=== PATIENT | female | born 1970 | race Caucasian/White ===

== ENCOUNTER 2017-01-04 22:43 | Emergency (ER) | payer SELFPAY ==
[~2017-01-04] VITALS: Ht 167.6 cm; Wt 81.5 kg
[~2017-01-04 22:43] MED LIST: IBUP800T25 PO
[2017-01-04 22:49] VITALS: Ht 167.6 cm; Wt 81.5 kg
[2017-01-05 00:34] LABS: ADD UMIC YES; UR BILIRUBIN (Dip) 2+ (NEGATIVE); UR BLOOD (Dip) 1+ (NEGATIVE); UR CLARITY SLIGHTLY CLOUDY (CLEAR); UR COLOR DK. YELLOW (YELLOW); UR GLUCOSE (Dip) NEGATIVE (NEGATIVE); UR KETONES (Dip) 15 (NEGATIVE); UR LEUKOCYTE ESTERASE (Dip) 1+ (NEGATIVE); UR NITRITE (Dip) NEGATIVE (NEGATIVE); UR TOTAL PROTEIN (Dip) 1+ (NEGATIVE); UR UROBILINOGEN (Dip) 1.0 E.U./dL (0.1-1.0)
[2017-01-05 00:47] LABS: ICTOTEST NEGATIVE (NEGATIVE)
[2017-01-05 00:49] LABS: UR BACTERIA FEW
[2017-01-05 00:50] LABS: UR SQUAMOUS EPITHELIAL CELL MANY
[2017-01-05] MEDS ORDERED: ONDANSETRON 4 MG INJ IV STA (00:51)
[2017-01-05] MEDS ORDERED: morphine 4 MG/ML VIAL IV STA (00:51)
[2017-01-05] MEDS ORDERED: SOD CHLORIDE 0.9% 1,000 ML IV ONE (01:00)
[2017-01-05] MEDS ORDERED: CEPH-443 PO (01:19)
[2017-01-05] MEDS ORDERED: ACET1TAB40 PO (01:19)
[2017-01-05] MEDS ORDERED: CEFTRIAXONE 1 GM/50 ML (PMX) 50 ML IVPB ONE ×2 (01:30)
[2017-01-05] MEDS ORDERED: HYDROCODONE/APAP (5/325) TAB PO ONE (01:30)
[2017-01-05] MEDS ORDERED: LIDOCAINE 1% (MDV) 20 ML INJ IM ONE (01:30)
--- NOTE | 2017-01-05 01:35 | ERD ---
"ER Documentation Chief Complaint Date/Time DATE: 01/05/17 TIME: 01:33 Chief Complaint lower abd pain, painful urination x 2 days HPI 46-year-old female with a history of uterine fibroids comes emergency room with lower abdominal pain and painful urination. Patient states that she has had on and off pelvic pain, she has been seen at [facility] emergency room she states that a CT scan showed multiple fibroids, she has also been told by an outside provider that she likely needs surgery. She also complains of painful urination for the past 2 days includes burning and urgency. She has not had any fevers, chills, vomiting. She denies any heavy vaginal bleeding. She states that she has had intermittent spotting for the last several months. ROS All systems reviewed and are negative except as per history of present illness. Medications Home Meds Active Scripts Acetaminophen with Codeine (Acetaminophen-Cod #3 Tablet) 1 Each Tablet, 1 TAB PO Q6H Y for PAIN, #20 TAB Prov:BRAD MCKEON PA-C 01/05/17 Cephalexin* (Keflex*) 500 Mg Capsule, 500 MG PO TID for 10 Days, CAP Prov:BRAD MCKEON PA-C 01/05/17 Ibuprofen* (Motrin*) 800 Mg Tab, 800 MG PO Q6 Y for PAIN, #14 TAB Prov:VLADEZ HOROWITZ PA-C 11/15/15 Allergies Allergies: Coded Allergies: No Known Drug Allergies (Verified Allergy, Mild, 01/04/17) PMhx/Soc History of Surgery: Yes (TUBAL LIGATION) Anesthesia Reaction: No Hx Neurological Disorder: No Hx Respiratory Disorders: No Hx Cardiac Disorders: Yes (HTN ) Hx Psychiatric Problems: No Hx Miscellaneous Medical Probl: No Hx Alcohol Use: No Hx Substance Use: Yes (MARIJUANA ) Hx Tobacco Use: Yes (2-3CIGS/ DAY ) Smoking Status: Current every day smoker Physical Exam Vitals Vital Signs Date Time Temp Pulse Resp B/P Pulse Ox O2 Delivery O2 Flow Rate FiO2 01/04/17 22:49 98.4 102 20 129/86 100 Physical Exam General: Well-developed, well-nourished. The patient appears in no acute distress. HEENT: Head is normocephalic, atraumatic. No scleral icterus. Neck: Supple. Nontender. Lungs: Clear to auscultation. Normal air movement. Heart: Regular rate and rhythm. S1 and S2 are normal. No murmurs, gallops, or rubs. Abdomen: Soft, suprapubic tenderness nondistended. Bowel sounds are normoactive. Extremities: No clubbing or cyanosis. Normal pulses. Moving extremities x 4. No weakness. Neurologic: Alert and oriented 3. No focal deficits. Skin: Normal turgor. No rash or lesions. Results 24 hrs Laboratory Tests Test 01/05/17 00:10 Urine Color DK. YELLOW Urine Clarity SLIGHTLY CLOUDY Urine pH 5.0 Urine Specific [place] >=1.030 Urine Ketones 15 Urine Nitrite NEGATIVE Urine Bilirubin 2+ Urine Ictotest NEGATIVE Urine Urobilinogen 1.0 E.U./dL Urine Leukocyte Esterase 1+ Urine Microscopic RBC 2-5/HPF Urine Microscopic WBC >200/HPF Urine Squamous Epithelial Cells MANY Urine Calcium Oxalate Crystals FEW Urine Bacteria FEW Urine Hemoglobin 1+ Urine Glucose NEGATIVE% Urine Total Protein 1+ Current Medications Medications (Trade) Dose Ordered Sig/Dawson Route PRN Reason Start Time Stop Time Status Last Admin Dose Admin Sodium Chloride (NS) 1,000 ml @ 1,000 mls/hr Q1H ONCE IV 01/05/17 01:00 01/05/17 01:18 DC Morphine Sulfate (morphine) 4 mg ONCE STAT IV 01/05/17 00:51 01/05/17 01:18 DC Ondansetron HCl 4 mg 4 mg ONCE STAT IV 01/05/17 00:51 01/05/17 01:18 DC Ceftriaxone Sodium 50 ml @ 100 mls/hr ONCE ONCE IVPB 01/05/17 01:30 01/05/17 01:30 DC Ceftriaxone Sodium (Rocephin) 50 ml @ 100 mls/hr ONCE ONCE IVPB 01/05/17 01:30 01/05/17 01:59 Lidocaine (Xylocaine 1% (Mdv) 20 ml) 2 ml ONCE ONCE IM 01/05/17 01:30 01/05/17 01:31 DC Acetaminophen/ Hydrocodone Bitart (Lincoln (5/325)) 1 tab ONCE ONCE PO 01/05/17 01:30 01/05/17 01:31 DC Procedures/MDM ED course: Patient had blood work done, urine obtained. She was given Rocephin 1 g IM with lidocaine, as well as Lincoln for pain control. Medical decision makin-year-old female comes in with fibroids, with chronic pelvic pain associated. I suspect given the large size, patient will likely need surgical evaluation with a ASSOCIATE DIRECTOR FINANCIAL AID. However these are stable findings, nonemergent. I do not see any concerning symptoms or signs for tubo- ovarian abscess or ovarian torsion as she is sitting comfortably. Patient's pain is likely due to the history of fibroids. She is aware that she needs to see a compressor mechanic bus, and therefore was given a list of outpatient facilities as well as primary care facilities. Her urinary tract infection was treated with antibiotics, she does not have any systemic findings including sepsis or fever, to indicate pyelonephritis. Departure Diagnosis: Primary Impression: Fibroids Additional Impression: UTI (urinary tract infection) Condition: Good Patient Instructions: Understanding Urinary Tract Infections (UTIs), Uterine Fibroids Referrals: [facility] YOU HAVE RECEIVED A MEDICAL SCREENING EXAM AND THE RESULTS INDICATE THAT YOU DO NOT HAVE A CONDITION THAT REQUIRES URGENT TREATMENT IN THE EMERGENCY DEPARTMENT. FURTHER EVALUATION AND TREATMENT OF YOUR CONDITION CAN WAIT UNTIL YOU ARE SEEN IN YOUR DOCTORS OFFICE WITHIN THE NEXT 1-2 DAYS. IT IS YOUR RESPONSIBILITY TO MAKE AN APPOINTMENT FOR FOLOW-UP CARE. IF YOU HAVE A PRIMARY DOCTOR --you should call your primary doctor and schedule an appointment IF YOU DO NOT HAVE A PRIMARY DOCTOR YOU CAN CALL OUR PHYSICIAN REFERRAL HOTLINE AT IF YOU CAN NOT AFFORD TO SEE A PHYSICIAN YOU CAN CHOSE FROM THE FOLLOWING [facility] [address] [facility]. [facility] [address] | [facility]. [facility] [address] [facility]. [facility] [address] [facility]. [facility] [address] [facility]. [facility]. [address] [facility] [place]. [facility] YOU HAVE RECEIVED A MEDICAL SCREENING EXAM AND THE RESULTS INDICATE THAT YOU DO NOT HAVE A CONDITION THAT REQUIRES URGENT TREATMENT IN THE EMERGENCY DEPARTMENT. FURTHER EVALUATION AND TREATMENT OF YOUR CONDITION CAN WAIT UNTIL YOU ARE SEEN IN YOUR DOCTORS OFFICE WITHIN THE NEXT 1-2 DAYS. IT IS YOUR RESPONSIBILITY TO MAKE AN APPOINTMENT FOR FOLOW-UP CARE. IF YOU HAVE A PRIMARY DOCTOR --you should call your primary doctor and schedule and appointment IF YOU DO NOT HAVE A PRIMARY DOCTOR YOU CAN CALL OUR PHYSICIAN REFERRAL HOTLINE AT . IF YOU CAN NOT AFFORD TO SEE A PHYSICIAN YOU CAN CHOSE FROM THE FOLLOWING [facility] INSTITUTIONS: [facility] [address] [place] [address] [facility] [address] [place] [address] [facility] [address] [place] [address] [facility]CIALTIES ASSOCIATE DIRECTOR FINANCIAL AID [place] [id number] [facility] [address] [place] [address] OFFICE FAX , [facility] [address] [place] [address] [address] [address] [place] [address] [address] [facility] [address] [facility], [address], [facility] [address] [address] [address] [place] [address] [facility] [address] [place] [address] [address] [facility] [address] [address], [facility] [address] [address] [address] [facility]. [address], [facility] [address] [address] [address] [place], [place] [address] Additional Instructions: Follow-up with her compressor mechanic bus within the next week. Return sooner for any worsening any symptoms. BRAD MCKEON PA-C Jan 05, 2017 01:35"
--- NOTE | 2017-01-05 01:44 | RADRPT ---
PROCEDURE: Pelvic ultrasound. CLINICAL INDICATION: Pelvic pain. TECHNIQUE: Multiple sonographic images of the pelvis were obtained utilizing a transabdominal and endovaginal technique. The images were reviewed on a PACS workstation. COMPARISON: None. FINDINGS: The uterus is enlarged and heterogeneous measuring 18.7 x 8.2 x 11.5 cm. There are multiple uterine fibroids with the largest measuring 6.4 x 5.8 x 7.2 cm. The endometrial echo complex is obscured by fibroids. There is no evidence for free fluid. Bilateral ovaries are not visualized. No adnexal masses are i dentified. IMPRESSION: Enlarged uterus with multiple fibroids. Endometrium and bilateral ovaries not visualized. .Brock Gonzales MD, Date Time Electronically viewed and signed by .Brock Gonzales MD, MD on 01/05/2017 01:44 .T/
[2017-01-05] MEDS ORDERED: CEFTRIAXONE 500 MG INJ IM ONE (02:30)
[2017-01-05] MEDS ORDERED: LIDOCAINE 2% (MDV) 20 ML INJ INJ ONE (02:30)
[2017-01-05 02:49] VITALS: BP 133/82; PULSE 74; TEMP 97.9
== END 2017-01-05 03:10 | disposition home or self-care (01) ==
LOC: FTE 22:43
DX: D25.9 Leiomyoma of uterus, unspecified (principal); N39.0 Urinary tract infection, site not specified; I10 Essential (primary) hypertension; F17.210 Nicotine dependence, cigarettes, uncomplicated; R10.2 Pelvic and perineal pain
CPT/HCPCS: 76830; 76856; 81001; J0696; 96372; J7030

== ENCOUNTER 2017-07-30 10:39 | Emergency (ER) | END 2017-07-30 13:51 | disposition left against medical advice (07) ==

== ENCOUNTER 2017-09-10 19:51 | Emergency (ER) | END 2017-09-10 23:20 | disposition home or self-care (01) ==

== ENCOUNTER 2017-10-07 20:31 | Emergency (ER) | END 2017-10-07 23:40 | disposition home or self-care (01) ==

== ENCOUNTER 2018-01-06 02:03 | Emergency (ER) | END 2018-01-06 05:28 | disposition home or self-care (01) ==

== ENCOUNTER 2018-02-14 15:30 | Emergency (ER) | END 2018-02-14 19:44 | disposition home or self-care (01) ==

== ENCOUNTER 2019-01-14 00:04 | Emergency (ER) | payer SELFPAY ==
[~2019-01-14] VITALS: Ht 167.6 cm; Wt 98.4 kg
[~2019-01-14 00:04] MED LIST changes: +ACET1TAB40 PO; +ACET500C5 PO; +CEPH-443 PO; +DOCU-144 PO; +FER325 PO; +HYDR-4011 PO; +IBUP-1542 PO; -IBUP800T25 PO; +IBUP800T48 PO; +NAPR-985 PO; +NITR-58 PO; +PHEN-538 PO; +TRAM50TA2 PO
[2019-01-14 02:09] VITALS: Ht 167.6 cm; Wt 98.4 kg
--- NOTE | 2019-01-14 03:08 | ERD ---
ER Documentation Chief Complaint Chief Complaint bug bite HPI This is a 48-year-old female presents emergency department with complaints of right lower extremity swelling/redness that started this morning. Stated that it started after she was gardening outside her house. Stated that she has normally have a lower extremity edema but the redness and warmth to touch in the right lower extremity is new to her. LMP: 2 weeks. G6, . Denies headache, head injury, loss of consciousness, dizziness, neck pain, neck stiffness, throat pain, difficulty swallowing, difficulty breathing lying flat, shoulder pain, chest pain, back pain, abdominal pain, nausea, vomiting, constipation, diarrhea, urinary symptoms, or possibility being , loss of bowel and bladder control, trauma, injury, falls, difficulty walking due to pain, numbness or tingling sensation, calf pain, recent travel, recent major surgery in the last 3 weeks, calf pain, recent long travel, recent exposure to any illness, recent antibiotic use in the last 3 months, fever, chills, seizures. Past medical history: Denies. Surgical history: Denies. Social: Denies smoking, use of alcoholic beverages, use of illegal drugs. ROS All systems reviewed and are negative except as per history of present illness. Medications Home Meds Active Scripts Famotidine* (Pepcid*) 20 Mg Tablet, 40 MG PO DAILY for 30 Days, TAB Prov:PASILABANLAURA F 01/14/19 Loratadine* (Loratadine*) 10 Mg Tablet, 10 MG PO DAILY, #30 TAB Prov:PASILABANAJITAR F 01/14/19 Diphenhydramine Hcl* (Benadryl*) 25 Mg Cap, 25 MG PO Q6 PRN for ITCHING/RASH, #30 TAB Prov:PASILABANLAURA F 01/14/19 Ibuprofen* (Motrin*) 800 Mg Tab, 800 MG PO Q6H PRN for PAIN AND OR ELEVATED TEMP, #30 TAB Prov:PASILABANLAURA F 01/14/19 Cephalexin* (Keflex*) 500 Mg Capsule, 500 MG PO TID for 7 Days, CAP Prov:PASILABAN,LAURA F 01/14/19 Sulfamethoxazole/Trimethoprim* (Bactrim Ds* Tablet) 1 Each Tablet, 1 TAB PO BID for 7 Days, #14 TAB Prov:PASILABAN,LAURA F 01/14/19 Docusate Sodium* (Colace*) 100 Mg Capsule, 100 MG PO TID, #30 CAP Prov:GENOVEVA WEBB PINBALL MACHINE REPAIRER 01/06/18 Tramadol HCl (Tramadol HCl) 50 Mg Tablet, 50 MG PO Q6 PRN for SEVERE PAIN LEVEL 7-10, #20 TAB Prov:GENOVEVA WEBB NP 01/06/18 Ibuprofen* (Motrin*) 600 Mg Tab, 600 MG PO Q6H PRN for PAIN AND OR ELEVATED TEMP, #30 TAB Prov:GENOVEVA WEBB PINBALL MACHINE REPAIRER 01/06/18 Ferrous Sulfate* (Ferrous Sulfate*) 325 Mg Tabec, 325 MG PO BID, #60 TAB Prov:GENOVEVA WEBB PINBALL MACHINE REPAIRER 01/06/18 Nitrofurantoin Monohyd Macrocr* (Macrobid*) 100 Mg Capsr, 100 MG PO HS for 7 Days, #14 CAP Prov:MAYELA,DAVINA 10/07/17 Hydrocodone/Acetaminophen (Violet 5-325 Tablet) 1 Each Tablet, 1 TAB PO Q6H PRN for PAIN, #7 TAB Prov:MAYELA,DAVINA 10/07/17 Naproxen* (Naprosyn*) 500 Mg Tablet, 500 MG PO BID PRN for PAIN AND/OR INFLAMMATION, #60 TAB Prov:MAYELA,DAVINA 10/07/17 Phenazopyridine Hcl* (Pyridium*) 200 Mg Tab, 200 MG PO TID PRN for URINARY PAIN, #6 TAB Prov:VALDEZ HOROWITZ PA-C 09/10/17 Acetaminophen* (Tylophen*) 500 Mg Capsule, 1 CAP PO Q6H PRN for PAIN AND OR ELEVATED TEMP, #30 CAP Prov:VALDEZ HOROWITZC 09/10/17 Acetaminophen with Codeine (Acetaminophen-Cod #3 Tablet) 1 Each Tablet, 1 TAB PO Q6H PRN for PAIN, #20 TAB Prov:BRAD MCKEON PA-C 01/05/17 Cephalexin* (Keflex*) 500 Mg Capsule, 500 MG PO TID for 10 Days, CAP Prov:BRAD MCKEON PA-C 01/05/17 Ibuprofen* (Motrin*) 800 Mg Tab, 800 MG PO Q6 PRN for PAIN, #14 TAB Prov:VALDEZ HOROWITZ Marshall ULRICH 11/15/15 Allergies Allergies: Coded Allergies: No Known Drug Allergies (Verified Allergy, Mild, 02/14/18) PMhx/Soc History of Surgery: Yes (TUBAL LIGATION) Anesthesia Reaction: No Hx Neurological Disorder: No Hx Respiratory Disorders: No Hx Cardiac Disorders: Yes (HTN ) Hx Psychiatric Problems: No Hx Miscellaneous Medical Probl: Yes (History of fibroids) Hx Alcohol Use: No Hx Substance Use: Yes (MARIJUANA ) Hx Tobacco Use: Yes (quit recently, now using vape) Smoking Status: Former smoker Physical Exam Vitals Vital Signs Date Temp Pulse Resp B/P (MAP) Pulse Ox O2 O2 Flow FiO2 Time Delivery Rate 01/14/19 97.8 80 18 132/62 99 Room Air 03:32 (85) 01/14/19 98.9 90 18 144/76 99 02:09 (98) Physical Exam Const: No acute distress Head: Atraumatic Eyes: Normal Conjunctiva. No conjunctival injection. ENT: Normal External Ears, Nose and Mouth. Bilateral ear: TM is not erythematous. No bleeding. No discharge. No hearing loss. No mastoid tenderness. Nose: No nasal flaring. No signs of obstruction. Throat/Lips: No lip swelling. No tongue swelling. Able to control tongue movement. No drooling. Uvula is in midline and non-displaced. Tonsils are + 1 with no redness and no exudates. Tolerating secretions. Patent airway. Speaks full and clear sentences. No tripoding. Neck: Full range of motion. No meningismus. Nuchal rigidity. No signs of meningeal irritation. Resp: Clear to auscultation bilaterally. No retraction noted. No accessory muscle use in breathing. Cardio: Regular rate and rhythm, no murmurs. Abd: Soft, non tender, non distended. Normal bowel sounds. No abdominal tenderness. Skin: No petechiae. No vesicular lesions. Back: No midline or flank tenderness Ext: No cyanosis, or edema. Right lower extremity has redness and swelling and warm to touch. There is no calf tenderness bilaterally. Right pedal pulse within normal limits. Capillary feels right lower extremity is less than 2 seconds. Right ankle is unremarkable. Right foot has no obvious deformity/signs of trauma. Right knee is unremarkable. Bilateral hips are stable and unremarkable. Left lower extremity is unremarkable. No neurovascular deficit. Ambulatory with steady gait. Neur: Awake and alert. No neurological deficit.. Psych: Normal Mood and Affect Results 24 hrs Current Medications Medications Dose Sig/Dawson Start Time Status Last (Trade) Ordered Route PRN Stop Time Admin Dose Reason Admin 10 mg ONCE ONCE 01/14/19 DC 01/14/19 Dexamethasone IM 03:30 03:21 (Decadron) 01/14/19 03:31 Ibuprofen 800 mg ONCE ONCE 01/14/19 DC 01/14/19 (Motrin) PO 03:30 03:20 01/14/19 03:31 Ceftriaxone 1 gm ONCE ONCE 01/14/19 DC 01/14/19 Sodium IM 03:30 03:21 (Rocephin) 01/14/19 03:31 25 mg ONCE ONCE 01/14/19 DC 01/14/19 Diphenhydrami PO 03:30 03:19 ne HCl 01/14/19 03:31 (Benadryl) Famotidine 40 mg ONCE ONCE 01/14/19 DC 01/14/19 (Pepcid) PO 03:30 03:20 01/14/19 03:31 Procedures/MDM Diagnostic tests: Clinical exam. I offered diagnostic imaging, blood works but patient strongly refused. She stated that she would rather be treated with antibiotics because she does not want to wait too long here in the emergency department. Treatment: Ceftriaxone IM. Dexamethasone. Motrin. Benadryl. Re-evaluation: Denies chest pain, back pain, chest pain when lying down, difficult breathing lying flat, calf pain. No calf tenderness bilaterally. Capillary feels to bilateral lower extremities are less than 2 seconds. No neurovascular deficit. No neurological deficit. Stated that she feels much better at this time and that she is ready to go home. Patient stated that she is comfortable to go home. Differential diagnosis I have low suspicion for sepsis, deep space infection, DVT, cellulitis, necrotizing fasciitis, ostium myelitis, fracture, compartment syndrome, CHF. Final diagnosis: Cellulitis. Infected insect bite. Prescription: Keflex. Bactrim. Motrin. Benadryl. Follow-up with PCP in the next 24-48 hours. Come back in 24 to 48 hours for recheck of skin. Come back here in the emergency department for any new symptoms or any worsening symptoms. All questions and concerns were answered. Patient and family members verbalized understanding and agreed with plan of care. Hemodynamically stable on discharge. Departure Diagnosis: Primary Impression: Infected insect bite Additional Impression: Cellulitis Condition: Stable Additional Instructions: Follow-up with PCP in the next 24-48 hours. Come back in 24 to 48 hours for recheck of skin. Come back here in the emergency department for any new symptoms or any worsening symptoms. LAURA ALAN Jan 14, 2019 03:08
[2019-01-14] MEDS ORDERED: CEPH-443 PO (03:12)
[2019-01-14] MEDS ORDERED: IBUP800T48 PO (03:12)
[2019-01-14] MEDS ORDERED: SULF1TAB31 PO (03:12)
[2019-01-14] MEDS ORDERED: LORA10TA3 PO (03:13)
[2019-01-14] MEDS ORDERED: FAMO-96 PO (03:13)
[2019-01-14] MEDS ORDERED: BEN25 PO (03:13)
[2019-01-14] MEDS ORDERED: IBUPROFEN 800 MG TAB PO ONE (03:30)
[2019-01-14] MEDS ORDERED: CEFTRIAXONE 1 GM INJ IM ONE (03:30)
[2019-01-14] MEDS ORDERED: FAMOTIDINE 20 MG TAB PO ONE (03:30)
[2019-01-14] MEDS ORDERED: DIPHENHYDRAMINE 25 MG CAP PO ONE (03:30)
[2019-01-14] MEDS ORDERED: DEXAMETHASONE 10 MG/ML 1 ML INJ IM ONE (03:30)
[2019-01-14 03:32] VITALS: BP 132/62; PULSE 80; RESP 18
== END 2019-01-14 03:33 | disposition home or self-care (01) ==
LOC: FTE 00:04
DX: S80.861A Insect bite (nonvenomous), right lower leg, initial encounter (principal); I10 Essential (primary) hypertension; L03.115 Cellulitis of right lower limb; W57.XXXA Bitten or stung by nonvenomous insect and other nonvenomous arthropods, initial encounter; Y92.007 Garden or yard of unspecified non-institutional (private) residence as the place of occurrence of the external cause
CPT/HCPCS: 96372; 99284; J0696; J1100